=== PATIENT | female | born 1975 | race Hispanic/Latino ===

== ENCOUNTER 2018-06-26 13:56 | Emergency (ER) | payer MEDICAID ==
[2018-06-26] MEDS ORDERED: ACETAMINOPHEN EXTRA STRENGTH 500 MG TABLET ONE (14:45)
[2018-06-26] MEDS ORDERED: ONDANSETRON ODT 4 MG TAB ONE (14:59)
[2018-06-26 15:10] LABS: RAPID GROUP A STREP NEGATIVE (NEGATIVE)
[2018-06-26 15:21] LABS: APPEARANCE,URINE CLOUDY (CLEAR); BILIRUBIN,URINE SMALL (NEGATIVE); COLOR,URINE RED (YELLOW); GLUCOSE, URINE (UA) 100 mg/dL (NEGATIVE); KETONES,URINE >=80 mg/dL (NEGATIVE); LEUKOCYTE ESTERASE ,URINE NEGATIVE (NEGATIVE); NITRATE,URINE NEGATIVE (NEGATIVE); OCCULT BLOOD,URINE LARGE (NEGATIVE); PH,URINE 6.5 (5.0-8.0); PROTEIN,URINE 100 mg/dL (NEGATIVE)
[2018-06-26 15:23] LABS: HCG,QUAL RESULT NEGATIVE (NEGATIVE)
[2018-06-26 15:45] LABS: BACTERIA,URINE Moderate /HPF (None Seen); RBC,URINE TNTC /HPF (0-1)
== END 2018-06-26 16:20 | disposition home or self-care (01) ==
LOC: EDH 13:56
DX: B34.9 Viral infection, unspecified (principal)
CPT/HCPCS: 81001; 81025; 87804; 87880